=== PATIENT | female | born 1975 | race Native Hawaiian/Other Pacific Islander ===

== ENCOUNTER 2016-07-18 12:50 | Outpatient (CLI) | payer BC | END 2016-07-18 13:50 | disposition home or self-care (01) | LOC: MAMMO 12:50 | DX: R92.2 Inconclusive mammogram (principal) | CPT/HCPCS: 77056; G0206 ==

== ENCOUNTER 2023-04-24 13:28 | Outpatient (CLI) | payer BC | END 2023-04-24 19:29 | disposition home or self-care (01) | LOC: MAMMO 13:28 | PROVIDERS: ATTEND Obstetrics & Gynecology | DX: Z12.31 Encounter for screening mammogram for malignant neoplasm of breast (principal) ==